=== PATIENT | female | born 1950 | race Caucasian/White ===

== ENCOUNTER 2016-08-06 09:07 | Inpatient (IN) | payer MEDICAID, OTHER ==
[~2016-08-06] VITALS: Ht 157.5 cm; Wt 116.1 kg
[2016-08-06 09:11] VITALS: BP 153/123
--- NOTE | 2016-08-06 09:15 | NUR ---
Patient ambulated to bed 02.
--- NOTE | 2016-08-06 09:17 | NUR ---
PATIENT PRESENTS TO ED WITH SOB X3 DAYS; DENIES N/V/D; SKIN IS PINK/WARM/DRY; AAOX4 WITH EVEN AND STEADY GAIT; LUNGS CLEAR BL; HR EVEN AND REGULAR; PT DENIES ANY FEVER, CP, SOB, OR COUGH AT THIS TIME; PATIENT STATES PAIN OF 4/10 AT THIS TIME; VSS; PATIENT POSITIONED FOR COMFORT; HOB ELEVATED; BEDRAILS UP X2; BED DOWN. ER MD MADE AWARE OF PT STATUS.
--- NOTE | 2016-08-06 09:30 | NUR ---
Dr. Garay evaluating patient at bedside.
[2016-08-06] MEDS ORDERED: ALBUTEROL SULFATE/IPRATROPIU 3 ML SOL IH ONE ×3 (09:35→11:00)
--- NOTE | 2016-08-06 09:40 | NUR ---
RT at bedside to give patient breathing treatment.
--- NOTE | 2016-08-06 09:51 | NUR ---
XRAY AT BEDSIDE.
[2016-08-06] MEDS ORDERED: methylPREDNISolone SS 125 MG in WATER STERILE 2 ML IM ONE (09:55)
--- NOTE | 2016-08-06 10:13 | NUR ---
RT at bedside to give patient another breathing treatment.
[2016-08-06] MEDS ORDERED: MAG SULF 2000 MG/WATER PREMIX 50 ML IV ONE (11:00)
[2016-08-06] MEDS ORDERED: AMOXICILLIN 500 MG CAP PO ONE (11:00)
--- NOTE | 2016-08-06 11:05 | NUR ---
RT at bedside for another breathing treatment.
[2016-08-06] MEDS ORDERED: FUROSEMIDE 40 MG/4 ML VIAL IVP ONE (12:15)
--- NOTE | 2016-08-06 14:05 | NUR ---
REPORT GIVEN TO JENNIFER ROSALES
--- NOTE | 2016-08-06 14:15 | NUR ---
Patient will be admitted to care of DR PACHECO. Admited to TELE. Will go to room 109B. Belongings list completed. Report to JENNIFER ROSALES.
[2016-08-06 14:20] VITALS: BP 145/79
--- NOTE | 2016-08-06 14:20 | NUR ---
PATIENT ARRIVED IN THE UNIT FROM ER. PATIENT AWAKE, ALERT ORIENTED AND AMBULATORY. NO S/S OF DISTRESS NOTED. NO C/O PAIN. PATIENT BREATHING ON ROOM AIR. IV LINE NOTED TO THE LEFT HAND SALINE LOCKED. PATIENT PLACED ON TELE MONITORING. BED LOWERED WITH CALL LIGHT WITHIN REACH. WILL CONTINUE TO MONITOR.
[2016-08-06] MEDS ORDERED: INFLUENZA VIRUS VACCINE QUAD 0.5 ML SYR IMVAC SCH (15:25)
[2016-08-06 16:00] VITALS: BP 114/59
--- NOTE | 2016-08-06 17:55 | NUR ---
PATIENT SEEN BY DR PACHECO
[2016-08-06] MEDS ORDERED: LORazepam 2 MG/ML VIAL IVP PRN (18:05)
[2016-08-06] MEDS: ACETAMINOPHEN 325 MG TAB PO PRN (18:55)
[2016-08-06] MEDS: DEXT 5% /NACL 0.9% 1,000 ML IV SCH (18:56)
[2016-08-06] MEDS: AZITHROMYCIN 500 MG in DEXTROSE 5% 250 ML IV SCH (18:56)
--- NOTE | 2016-08-06 19:30 | NUR ---
Patient's Plan of Care was discussed and reviewed with ORDER SELECTOR: SIMONA ASH.
--- NOTE | 2016-08-06 19:47 | NUR ---
ENDORSED CONTINUITY OF CARE TO THE NIGHT NURSE. PATIENT IN STABLE CONDITION
--- NOTE | 2016-08-06 19:47 | NUR ---
PATIENT SEEN BY DR Roddy DODD
--- NOTE | 2016-08-06 19:48 | NUR ---
RECD. RESTING IN BED, AWAKE, A/OX4. NO RESPIRATORY DISTRESS NOTED, SEEMS ANXIOUS. LUNGS DIMINISHED SOUNDS ON BILATERAL AUSCULTATION. 02 SAT AT - 97% ON ROOM AIR. IV OF D5 NS AT 100 ML/HR INFUSING, LEFT HAND G 24. PLAN OF CARE FOR THE SHIFT DISCUSSED. VERBALIZED UNDERSTANDING. DENIES PAIN 0/10. RT CAME TO GIVE BREATHING TREATMENT.
--- NOTE | 2016-08-06 19:50 | NUR ---
AWAKE AND ALERT RESPONSIVE TO TILE EDGER VERBAL COMMANDS PATIENT C/O OF SOB RR 24 SATURATION 97% ON SUPPLEMENTAL OXYGEN AT 2 LPM VIA NC BREATH SOUNDS DIMINISHED BILATERAL HHN PRN THERAPY GIVEN AT THIS TIME ENCOURAGED DEEP BREATH DURING THERAPY TOLERATED WELL WITHOUT INCIDENT POST THERAPY PLACED PATIENT ON ROOM AIR OXYGEN TITRATION ORDER 88%-92% TILE EDGER TO MONITOR PLACED SPECIMEN COLLECTION CUP FOR SPUTUM EDUCATION PROVIDED TO PATIENT SIMONA/RN NOTIFIED
[2016-08-06 20:00] VITALS: BP 136/73
[2016-08-06] MEDS: ALBUTEROL 0.083% 2.5 MG/3 ML NEBU INH PRN (20:06)
[2016-08-06] MEDS: IPRATROPIUM 0.02% 0.5 MG/2.5 ML NEBU INH PRN (20:06)
--- NOTE | 2016-08-06 20:30 | NUR ---
CALLED FOR NURSE FOR IV TO BE CHECKED, FLUSHED IV LINE, WITH GOOD BLOOD RETURN, ASSURED PATIENT THAT HER IV LINE IS WORKING WELL.
--- NOTE | 2016-08-06 21:00 | NUR ---
DR. MILLER CAME AND CHECKED PATIENT, WILL FOLLOW UP FRO ANY NEW ORDER.
--- NOTE | 2016-08-06 21:02 | NUR ---
SATURATION 95% ON ROOM AIR AWAKE AND ALERT SKIN TONE PINK NO PULMONARY DISTRESS NOTED SIMONA/RN NOTIFIED
[2016-08-06] MEDS: methylPREDNISolone SS 40 MG/ML VIAL IVP SCH (21:05)
--- NOTE | 2016-08-06 21:14 | NUR ---
WITH ANXIETY, MEDICATED WITH ATIVAN 1 MG. IVP BY JENNIFER ALBRECHT.
--- NOTE | 2016-08-06 22:00 | NUR ---
AMBULATED TO BR. IV ACCIDENTALLY PULLED OUT, CLEANSED OF BLOOD AND SECURED ATTACHMENTS, BACK TO BED AFTER VOIDING. SAFETY MAINTAINED.
--- NOTE | 2016-08-06 22:15 | NUR ---
RESTING IN BED, APPEARS RELAXED, DECREASED ANXIETY NOTED, SEEMS DROWSY.
--- NOTE | 2016-08-06 22:20 | NUR ---
GIVEN NEW CUP FOR SPUTUM, 1ST CUP COLLECTION IS SALIVA.
--- NOTE | 2016-08-06 22:47 | NUR ---
ASLEEP RESTING COMFORTABLY NO PULMONARY DISTRESS NOTED
[2016-08-07] VITALS: BP 119/64
--- NOTE | 2016-08-07 03:56 | NUR ---
ASLEEP NO APPARENT RESPIRATORY DISTRESS NOTED
[2016-08-07 04:00] VITALS: BP 113/58
[2016-08-07] MEDS: DEXT 5% /NACL 0.9% 1,000 ML IV SCH ×2 (04:05→14:05)
[2016-08-07] MEDS: ACETAMINOPHEN 325 MG TAB PO PRN (06:08)
--- NOTE | 2016-08-07 06:15 | NUR ---
TAKEN TO LAB SPUTUM SPECIMEN FOR SPUTUM CULTURE.
--- NOTE | 2016-08-07 06:45 | NUR ---
CONDITION REMAIN STABLE. WILL ENDORSED TO AM NURSE FOR CONTINUITY OF CARE.
--- NOTE | 2016-08-07 07:20 | NUR ---
RECEIVED PT AAO, STILL SLEEPY, NO SOB, SKIN WARM TO TOUCH RESP. EVEN AND UNLABORED, IVF ONGOING WELL TOLERATED, IVF SITE INTACT.
--- NOTE | 2016-08-07 07:25 | NUR ---
ENDORSED TO JENNIFER MILLER FOR CONTINUITY OF CARE.
[2016-08-07 07:41] VITALS: BP 127/57
--- NOTE | 2016-08-07 08:27 | NUR ---
PATIENT HAS BEEN SCREENED AND CATEGORIZED HIGH NUTRITION RISK. PATIENT WILL BE SEEN WITHIN 1-2 DAYS OF ADMISSION. 08/07/16-08/08/[address]
[2016-08-07] MEDS: methylPREDNISolone SS 40 MG/ML VIAL IVP SCH ×2 (09:00→20:32)
[2016-08-07] MEDS: HYDROcodone/APAP 5/325 MG 1 TAB TAB PO PRN ×2 (09:04→18:03)
--- NOTE | 2016-08-07 09:15 | NUR ---
PT EATING BREAKFAST AT THIS TIME, PT AAO
--- NOTE | 2016-08-07 09:24 | NUR ---
PT WATCHING TV AND EATING BREAKFAST AT THIS TIME, CLAIMED I FEEL MUCH BETTER NO MORE HEADACHE
--- NOTE | 2016-08-07 09:36 | NUR ---
PT AAO, ONGOING WITH ECHOCARDIOGRAM
--- NOTE | 2016-08-07 11:16 | NUR ---
PT SLEEPING AT THIS TIME, ON ROOM AIR, NO SOB NOTED, IVF ONGOING WELL TOLERATED.
--- NOTE | 2016-08-07 11:31 | NUR ---
SPUTUM SPECIMEN BOTTLE AT BEDSIDE, AWARE NEED TO COLLECT SPUTUM AGAIN
--- NOTE | 2016-08-07 11:31 | NUR ---
RT AT BEDSIDE FOR HHN
[2016-08-07] MEDS: IPRATROPIUM 0.02% 0.5 MG/2.5 ML NEBU INH PRN ×2 (11:35→19:56)
[2016-08-07] MEDS: ALBUTEROL 0.083% 2.5 MG/3 ML NEBU INH PRN ×2 (11:35→19:56)
--- NOTE | 2016-08-07 12:14 | NUR ---
CALL PLACE TO [facility] PT REFUSED LUNCH, PER [facility] WILL SEND HAM SAND WHICH
[2016-08-07] MEDS: ONDANSETRON 4 MG/2 ML VIAL IVP PRN (12:47)
[2016-08-07 12:48] VITALS: BP 131/70
--- NOTE | 2016-08-07 13:18 | NUR ---
PT RANDALL AT BEDSIDE, PER PT WILL EAT LATER, NO N/V NOTED AT THIS TIME, NO SOB NOTED.
--- NOTE | 2016-08-07 13:54 | NUR ---
DR. PISANO AT BEDSIDE MD SAID KEEP PT HEPLOCK
--- NOTE | 2016-08-07 14:23 | NUR ---
OFFER TO GIVE FLU VACCINE PT SAID NOT NOW, WHEN I GO HOME, DAUGHTER AT BEDSIDE
[2016-08-07 15:57] VITALS: BP 116/64
--- NOTE | 2016-08-07 15:59 | NUR ---
PT SLEEPING AT THIS TIME, NO SOB NOTED, ON ROOM AIR
--- NOTE | 2016-08-07 17:02 | NUR ---
PT STILL SLEEPING AT THIS TIME, NO SOB NOTED, ON O2 AT 2L/MIN Addendum: 08/07/16 at 1703 by Margo Matute RN WRONG PT
--- NOTE | 2016-08-07 17:04 | NUR ---
PT TALKING IN THE PHONE AT THIS TIME, NO C/O PAIN NOTED, ON ROOM AIR
--- NOTE | 2016-08-07 19:17 | NUR ---
BEDSIDE REPORT GIVEN TO MARY LOU
--- NOTE | 2016-08-07 19:28 | NUR ---
RECEIVED REPORT FROM JENNIFER MILLER, AT BEDSIDE. INITIAL ASSESSMENT AND BODY CHECK DONE. PATIENT AAO X 4, ABLE TO FOLLOW COMMAND AND MAKE NEEDS KNOWN AND AMBULATORY BY SELF WITH STEADY GAIT. PATIENT CURRENTLY SITTING UP ON THE BED AND TALKING. NO S/S OF DISTRESS OR SOB NOTED. DENIED OF ANY PAIN/DISCOMFORT AT THIS TIME. SKIN WARM/DRY TO TOUCH WITH NORMAL COLOR AND INTACT. DISCUSSED PLAN OF CARE, PAIN MANAGEMENT AND MEDICATION REGIMEN WITH PATIENT AND PATIENT VERBALIZED UNDERSTANDING. PLACED PATIENT ON SAFETY PRECAUTIONS AND WILL CONTINUE TO MONITOR. CALL LIGHT LEFT WITHIN REACH.
[2016-08-07 20:00] VITALS: BP 135/86
--- NOTE | 2016-08-07 20:10 | NUR ---
DR. TARA Em. HERE TO REVIEW PATIENT'S CHART AND WILL FF-UP WITH NEW ORDERS.
[2016-08-07] MEDS: AZITHROMYCIN 500 MG in DEXTROSE 5% 250 ML IV SCH (20:32)
--- NOTE | 2016-08-07 21:00 | NUR ---
ADMINISTERED DUE MEDICATIONS MD'S ORDERED WITH EDUCATION GIVEN. PATIENT COMPLYING WITH MEDICATIONS AND TOLERATED WELL. ALL NEEDS ARE ATTENDED. KEPT PATIENT IN COMFORTABLE POSITION/WARM AND WILL CONTINUE TO MONITOR.
--- NOTE | 2016-08-07 22:00 | NUR ---
PATIENT CALLED AND C/O BURNING SENSATION OVER THE IV SITE, LT HAND, DURING RUNNING ABX MEDICATION. STOPPED AND INSERTED THE NEW IV LINE ON LT UPPER ARM AND CONTINUE ABX. AFTER 30 MINS POST, PATIENT STATED NO MORE PAIN NOR DISCOMFORT. WILL CONTINUE TO MONITOR
[2016-08-08] VITALS: BP 136/78
[2016-08-08] MEDS: DEXT 5% /NACL 0.9% 1,000 ML IV SCH ×2 (00:05→12:53)
[2016-08-08] MEDS: ONDANSETRON 4 MG/2 ML VIAL IVP PRN (00:55)
--- NOTE | 2016-08-08 01:08 | NUR ---
PATIENT STILL AWAKE AND TALKING TO ROOMMATE. GAVE ZOFRAN FOR C/O NAUSEA. V/S REMAINED WNL AND NO APPARENT DISTRESS NOTED. WILL CONTINUE TO MONITOR.
[2016-08-08 04:00] VITALS: BP 124/74
--- NOTE | 2016-08-08 04:30 | NUR ---
ASSISTED PATIENT TO THE RESTROOM AND BACK TO BED SAFELY. PATIENT TOLERATED ACTIVITY WELL AND REMAINED IN STABLE CONDITION. NO ANY COMPLAINT MADE. WILL CONTINUE TO MONITOR.
[2016-08-08] MEDS: ALBUTEROL 0.083% 2.5 MG/3 ML NEBU INH PRN ×3 (07:03→19:38)
[2016-08-08] MEDS: IPRATROPIUM 0.02% 0.5 MG/2.5 ML NEBU INH PRN ×3 (07:03→19:39)
--- NOTE | 2016-08-08 07:19 | NUR ---
PATIENT RESTED WELL THROUGHOUT THE SHIFT AND REMAINED IN STABLE CONDITION WITHOUT S/S OF DISTRESS NOTED. ENDORSED PLAN OF CARE TO JENNIFER PONCE, AT BEDSIDE.
--- NOTE | 2016-08-08 07:20 | NUR ---
RECEIVED REPORT FROM THE RADIOLOGICAL TECHNOLOGIST NURSE AT BEDSIDE. PT IS AWAKE AND ALERT. THE R.T. IS WITH HER GIVING HE BREATHING TX. WILL BE BACK TO FURTHER ASSESS PT.
--- NOTE | 2016-08-08 07:40 | NUR ---
V/S WITHIN NORMAL RANGE. SHE STATES SHE HAS SOME PAIN, LOZANO. WOULD LIKE SOME TYLENOL. WILL MEDICATE WITH MORNING MEDS. NOTED 2 IV'S ON L UA 24G AND R HAND 24G. PT'S SKIN IS INTACT. ALL NEEDS MET AT THIS TIME, ALL SAFETY MEASURES IN PLACE. WILL CONTINUE TO MONITOR PT.
[2016-08-08 08:00] VITALS: BP 134/68
[2016-08-08] MEDS: ACETAMINOPHEN 325 MG TAB PO PRN ×3 (08:48→16:54)
[2016-08-08] MEDS: methylPREDNISolone SS 40 MG/ML VIAL IVP SCH ×2 (08:48→20:26)
--- NOTE | 2016-08-08 08:50 | NUR ---
ADMINISTERED MORNING MEDS. PT TOLERATED WELL. SHE ALSO C/O OF A HEADACHE. GAVE HER TYLENOL. WILL CONTINUE TO MONITOR PT.
--- NOTE | 2016-08-08 11:17 | NUR ---
PT SLEEPING SOUNDLY. NO SIGNS OF DISTRESS. CALL LIGHT WITHIN REACH. WILL CONTINUE TO MONITOR PT.
[2016-08-08 12:00] VITALS: BP 131/77
--- NOTE | 2016-08-08 13:35 | NUR ---
PT IS VISITING WITH HER ROOM MATE. NO COMPLAINTS AT THIS TIME. PAIN IS BETTER. CALL LIGHT WITHIN REACH. WILL CONTINUE TO MONITOR PT.
--- NOTE | 2016-08-08 14:55 | NUR ---
PT IS VISITING WITH HER ROOM MATE. PT'S LOZANO IS BETTER. NO OTHER COMPLAINTS. NO SIGNS OF DISTRESS. WILL CONTINUE TO MONITOR PT.
--- NOTE | 2016-08-08 15:32 | NUR ---
08/08/16 RD INITIAL ASSESSMENT COMPLETED PLEASE REFER TO NUTRITION ASSESSMENT UNDER CARE ACTIVITY FOR ESTIMATED NUTRITIONAL NEEDS. RD RECOMMENDATIONS: 1. CONTINUE REGULAR DIET TOLERATED. --PT MEETING 100% OF ESTIMATED NEEDS. 2. RD PROVIDED PT WITH HEALTHY EATING EDUCATION. 3. RD WILL F/U 3-5 DAYS; MODERATE RISK. MATHEW KNAPP RD
[2016-08-08 16:00] VITALS: BP 128/65
--- NOTE | 2016-08-08 17:00 | NUR ---
PT IS ON THE PHONE. PT C/O OF HEADACHE. I GAVE HER TYLENOL REQUESTED. TOLERATED WELL. NO OTHER COMPLAINTS. CALL LIGHT WITHIN REACH. WILL CONTINUE TO MONITOR PT.
--- NOTE | 2016-08-08 18:26 | NUR ---
PT DIDN'T WANT HER DINNER SO I ORDERED HER A SEPARATE TRAY, SAME LUNCH. SHE ATE 100% OF DINNER TRAY. PT IS RESTING COMFORTABLY IN BED. NO COMPLAINTS AT THIS TIME. WILL CONTINUE TO MONITOR PT.
--- NOTE | 2016-08-08 19:15 | NUR ---
ENDORSED PT TO THE BURGLAR ALARM MECHANIC NURSE AT BEDSIDE FOR CONTINUITY OF CARE. PT IS IN STABLE CONDITION. NO COMPLAINTS AT THIS TIME. FAMILY MEMBER SITTING AT BEDSIDE.
--- NOTE | 2016-08-08 19:20 | NUR ---
RECEIVED PT FROM KRIS RODRIGUEZ PT IS AAOX4 AMBULATORY ON TELEMETRY SR, IV ON LEFT UA INFUSING WELL INITIAL ASSESSMENT DONE.
[2016-08-08 20:00] VITALS: BP 138/67
[2016-08-08] MEDS: AZITHROMYCIN 500 MG in DEXTROSE 5% 250 ML IV SCH (20:25)
--- NOTE | 2016-08-08 22:00 | NUR ---
PT RESTING ON BED DENIES ANY PAIN ON TELEMETRY SR
[2016-08-08] MEDS ORDERED: PSEUDOEPHEDRINE 30 MG TAB PO PRN (22:15)
[2016-08-09] VITALS: BP 117/74
[2016-08-09] MEDS: DEXT 5% /NACL 0.9% 1,000 ML IV SCH ×3 (00:18→16:05)
--- NOTE | 2016-08-09 00:21 | NUR ---
PT AFTER AMBULATES TO THE RESTROOM VOIDING WELL COME BACK TO BE GETTING READY TO SLEEP ON TELEMETRY SR
[2016-08-09] MEDS: HYDROcodone/APAP 5/325 MG 1 TAB TAB PO PRN (02:42)
[2016-08-09 04:00] VITALS: BP 139/81
--- NOTE | 2016-08-09 04:00 | NUR ---
SPONGE BATH GIVEN LINEN CHANGED PT RESTING WELL ON BED ON TELEMETRY SR
--- NOTE | 2016-08-09 06:30 | NUR ---
PT AMBULATES TO THE RESTROOM VOIDING WELL NOT DISTRESS NOTED IV ON LEFT UA INFUSING WELL.
[2016-08-09] MEDS: ALBUTEROL 0.083% 2.5 MG/3 ML NEBU INH PRN ×3 (07:43→20:54)
[2016-08-09 08:00] VITALS: BP 136/72
[2016-08-09] MEDS: LORATADINE 10 MG TAB PO SCH (08:37)
[2016-08-09] MEDS ORDERED: CLARITIN D PO SCH (09:00)
--- NOTE | 2016-08-09 09:05 | NUR ---
ASSUMED CONTINUITY OF CARE. NO SIGNS AND SYMPTOMS OF ACUTE DISTRESS NOTED. INITIAL ASSESSMENT DONE. KEEP COMFORTABLE ON BED. EXPLAINED DIAGNOSIS, PLAN OF CARE, PAIN MANAGEMENT TEACHING, USE OF CALL LIGHT/BED/TV/BATHROOM. VERBALIZED UNDERSTANDING. CALL LIGHT WITHIN REACH.
[2016-08-09] MEDS: methylPREDNISolone SS 40 MG/ML VIAL IVP SCH ×2 (09:10→20:57)
--- NOTE | 2016-08-09 09:13 | NUR ---
PT TOLERATED MEDS WELL. WILL CONTINUE TO MONITOR.
--- NOTE | 2016-08-09 10:30 | NUR ---
INSERTED IV ON LEFT FOREARM GAUGE #24. TOLERATED WELL. NO C/O PAIN. REMOVED IV ACCES ON LEFT HAND GAUGE #24.
--- NOTE | 2016-08-09 11:58 | NUR ---
MILTON SANCHEZ CAME, CHECKED PT. CHART, AND SEEN PT.. INFORMED MILTON SANCHEZ OF LATEST VS. NO ORDER RECEIVED.
[2016-08-09 12:00] VITALS: BP 150/79
--- NOTE | 2016-08-09 12:54 | NUR ---
DR. ZAMUDIO CAME, CHECKED PT. CHART, AND SEEN PT.. NO ORDER RECEIVED.
--- NOTE | 2016-08-09 15:32 | NUR ---
SS NOTE I WAS INFORMED BY ELISE TENORIO THAT PT WANTED TO SPEAK WITH ME. I SPOKE WITH PT BEDSIDE AND SHE STATED THAT SHE LOST HER MEDI-P[facility] AND WANTS TO GET IT BACK. I INFORMED HER THAT SHE WOULD HAVE TO FOLLOW UP WITH HER LOCAL [facility] OFFICE, SHE VERBALIZED UNDERSTANDING. I PROVIDED PT WITH THE [facility] MD ROSTER SO THAT SHE CAN SELECT A PCP TO FOLLOW UP WITH WELL A PRESCRIPTION DISCOUNT IN CASE PT NEEDS IT.
[2016-08-09 16:00] VITALS: BP 122/62
--- NOTE | 2016-08-09 19:09 | NUR ---
REPORT GIVEN TO BRAEDEN DAVILA -JENNIFER. IVF INFUSING WELL. IN STABLE CONDITION.
--- NOTE | 2016-08-09 19:10 | NUR ---
RECEIVED PT FROM JONA OLIVARES PT IS AAOX4 AMBULATORY IV ON LEFT FA INFUSING WELL ON TELEMETRY SR, PT MORBID OBESITY, NOT SOB NOTED INITIAL ASSESSMENT DONE
[2016-08-09 20:00] VITALS: BP 125/60
[2016-08-09] MEDS: IPRATROPIUM 0.02% 0.5 MG/2.5 ML NEBU INH PRN (20:54)
[2016-08-09] MEDS: AZITHROMYCIN 500 MG in DEXTROSE 5% 250 ML IV SCH (20:57)
--- NOTE | 2016-08-09 22:00 | NUR ---
PT WATCHING TV RESP THERAPY ALREADY GAVE BREATHING TX REMAIN STABLE AT THIS TIME
[2016-08-09] MEDS: ACETAMINOPHEN 325 MG TAB PO PRN (23:48)
[2016-08-10] VITALS: BP 155/71
--- NOTE | 2016-08-10 00:48 | NUR ---
AFTER PAIN MEDIC GIVEN PT SLEEPING WELL ON TELEMETRY SR NOT SOB NOTED
[2016-08-10] MEDS: DEXT 5% /NACL 0.9% 1,000 ML IV SCH ×2 (02:05→11:52)
--- NOTE | 2016-08-10 03:19 | NUR ---
PT HAS BEEN MONITORING CLOSE, NOT SOB NOTED ON TELEMETRY SR , REMAIN STABLE
[2016-08-10 04:00] VITALS: BP 159/76
--- NOTE | 2016-08-10 06:20 | NUR ---
PT AMBULATES TO THE RESTROOM NOT SOB NOTED NOT FEVER, ON TELEMETRY SR REMAIN STABLE AT THIS TIME
--- NOTE | 2016-08-10 07:15 | NUR ---
RECEIVED REPORT FROM JENNIFER DERAS. PT IS AAOX4, PT ON ROOM AIR WITH NO S/S OF DISTRESS NOTED. IV TO LEFT UPPER ARM #24 AND LEFT FA #24, PATENT AND INTACT. SKIN INTACT. NO N/V OR PAIN INDICATED. ALL SAFETY PRECAUTIONS IN PLACE, SIDE RAILSX2, BED IN LOW POSITION, AND CALL LIGHT WITHIN REACH. WILL CONTINUE TO MONITOR.
[2016-08-10 08:00] VITALS: BP 158/85
[2016-08-10] MEDS: LORATADINE 10 MG TAB PO SCH (09:00)
[2016-08-10] MEDS: methylPREDNISolone SS 40 MG/ML VIAL IVP SCH (09:00)
--- NOTE | 2016-08-10 09:04 | NUR ---
PT TOLERATED MEDS WELL. WILL CONTINUE TO MONITOR.
[2016-08-10] MEDS ORDERED: PREDNISONE10 MG PO (09:56)
[2016-08-10] MEDS ORDERED: ATROVENT HFA12.5 GM IH (09:56)
[2016-08-10] MEDS ORDERED: PREDNISONE20 MG PO (09:56)
[2016-08-10] MEDS ORDERED: CLARITIN10 M1 PO (09:56)
[2016-08-10] MEDS ORDERED: ZITHROMAX250 MG PO (09:56)
[2016-08-10] MEDS ORDERED: PROVENTIL HFA M18 GM INH (09:56)
[2016-08-10] MEDS ORDERED: SUDAFED30 M1 PO (09:56)
[2016-08-10] MEDS: ALBUTEROL 0.083% 2.5 MG/3 ML NEBU INH PRN (10:22)
[2016-08-10] MEDS: IPRATROPIUM 0.02% 0.5 MG/2.5 ML NEBU INH PRN (10:22)
--- NOTE | 2016-08-10 10:27 | NUR ---
PT TO BE DISCHARGED. WILL FOLLOW UP ON ORDERS.
[2016-08-10] MEDS: ACETAMINOPHEN 325 MG TAB PO PRN (10:59)
--- NOTE | 2016-08-10 11:03 | NUR ---
PT C/O 11/03, ADMINISTERED TYLENOL ORDERED. ADMINISTERED FLU VACCINE ORDERED, WILL REASSESS FOR REACTION.
--- NOTE | 2016-08-10 11:16 | NUR ---
NO REACTION NOTED FROM INFLUENZA VACCINE.
[2016-08-10 12:00] VITALS: BP 148/93
--- NOTE | 2016-08-10 12:40 | NUR ---
PT HAS BEEN DISCHARGED. ALL PAPERWORK SIGNED. ALL QUESTIONS ANSWERED. ALL BELONGINGS AND PRESCRIPTIONS IN PT POSSESSION. IV DC'ED WITH CANNULA INTACT. WRISTBANDS AND TELE MONITOR REMOVED. NOTIFIED AUTOPSY PATHOLOGIST. PT WHEELED OUT OF UNIT WITH FAMILY AT BEDSIDE. PT AMBULATED TO VEHICLE WITH STEADY GAIT. PT TO FOLLOW UP WITH DR Wilma PACHECO IN ONE WEEK. ADDRESS AND PHONE NUMBER PROVIDED. PT IN STABLE CONDITION.
== END 2016-08-10 12:40 | disposition home or self-care (01) | DRG 189 ==
LOC: MED 09:07 → MTU 14:05
PROVIDERS: ADMIT Preventive Medicine Preventive Medicine/Occupational Environmental Medicine; ATTEND Preventive Medicine Preventive Medicine/Occupational Environmental Medicine
DX: J96.21 Acute and chronic respiratory failure with hypoxia (principal); J44.1 Chronic obstructive pulmonary disease with (acute) exacerbation; Z68.42 Body mass index [BMI] 45.0-49.9, adult; J81.1 Chronic pulmonary edema; J44.0 Chronic obstructive pulmonary disease with (acute) lower respiratory infection; J20.9 Acute bronchitis, unspecified; E66.9 Obesity, unspecified; I11.9 Hypertensive heart disease without heart failure; E11.65 Type 2 diabetes mellitus with hyperglycemia; E78.5 Hyperlipidemia, unspecified; E83.52 Hypercalcemia; J45.909 Unspecified asthma, uncomplicated; Z90.13 Acquired absence of bilateral breasts and nipples; Z98.84 Bariatric surgery status; Z88.8 Allergy status to other drugs, medicaments and biological substances; Z88.2 Allergy status to sulfonamides; Z91.041 Radiographic dye allergy status; Z85.3 Personal history of malignant neoplasm of breast; Z87.891 Personal history of nicotine dependence

== ENCOUNTER 2016-09-28 10:49 | Outpatient (CLI) | payer OTHER ==
[~2016-09-28 10:49] MED LIST: ALBU0.0912 INH; ATRMDI IH; AZIT250T3 PO; LORA10TA19 PO; PRED10TA5 PO; PRED20TA5 PO; SUD30 PO
== END 2016-09-28 20:46 | disposition home or self-care (01) ==
LOC: MRD 10:49
PROC: B54DZZZ Ultrasonography of Bilateral Lower Extremity Veins (ICD-10-PCS; principal; 2016-09-28)
DX: R22.43 Localized swelling, mass and lump, lower limb, bilateral (principal)
CPT/HCPCS: 93970

== ENCOUNTER 2016-11-18 12:36 | Emergency (ER) | payer OTHER ==
[~2016-11-18] VITALS: Ht 160 cm; Wt 118.8 kg
[2016-11-18 13:39] VITALS: BP 125/65
--- NOTE | 2016-11-18 14:52 | NUR ---
Abdiaziz cast in [facility] - 11/18/16 at 1454 by JOSIAS PT AMBULATED TO BED .
--- NOTE | 2016-11-18 14:54 | NUR ---
PT WHEEL CHAIRED BY ER STAFF TO ER BED 06.
--- NOTE | 2016-11-18 15:02 | NUR ---
PATIENT PRESENTS TO ED WITH C/O LEFT FOOT AND LEFT ANKLE PAIN S/P FALL LAST FRIDAY 11/03;HX; GASTRIC BYPASS, BREAST CA DOUBLE MASTECTOMY RIGHT LYMPH NODES REMOVE 2005, FIBROMYALGIA;DENIES N/V/D; SKIN IS PINK/WARM/DRY; AAOX4 WITH EVEN AND STEADY GAIT; LUNGS CLEAR BL; HR EVEN AND REGULAR; PT DENIES ANY FEVER, CP, SOB, OR COUGH AT THIS TIME; PATIENT STATES PAIN OF 11/03 AT THIS TIME;PATIENT POSITIONED FOR COMFORT; HOB ELEVATED; BEDRAILS UP X2; BED DOWN.
[2016-11-18 15:33] VITALS: BP 118/62
== END 2016-11-18 15:33 | disposition home or self-care (01) ==
LOC: MED 12:36
DX: S92.812A Other fracture of left foot, initial encounter for closed fracture (principal); Z91.041 Radiographic dye allergy status; Z88.2 Allergy status to sulfonamides; J45.909 Unspecified asthma, uncomplicated; J44.9 Chronic obstructive pulmonary disease, unspecified; Z85.3 Personal history of malignant neoplasm of breast; M79.7 Fibromyalgia; Z98.84 Bariatric surgery status; Z90.13 Acquired absence of bilateral breasts and nipples; W01.0XXA Fall on same level from slipping, tripping and stumbling without subsequent striking against object, initial encounter; Y93.89 Activity, other specified; Y92.89 Other specified places as the place of occurrence of the external cause; Y99.8 Other external cause status
CPT/HCPCS: 73610; 73630; 99284

== ENCOUNTER 2016-12-03 11:08 | Outpatient (CLI) | payer OTHER | END 2016-12-03 20:37 | disposition home or self-care (01) | LOC: MRD 11:08 | DX: S62.305A Unspecified fracture of fourth metacarpal bone, left hand, initial encounter for closed fracture (principal); X58.XXXA Exposure to other specified factors, initial encounter; Y93.89 Activity, other specified; Y92.89 Other specified places as the place of occurrence of the external cause; Y99.8 Other external cause status | CPT/HCPCS: 73630 ==